=== PATIENT | female | born 1980 | race Caucasian/White ===

== ENCOUNTER 2018-09-23 17:51 | Emergency (ER) | payer OTHER ==
[2018-09-23] MEDS ORDERED: KETOROLAC TROMETHAMINE INJ/PF 30 MG/1 ML SDV IV ONE (19:42)
[2018-09-23] MEDS ORDERED: NORMAL SALINE 1000 ML 1,000 ML IV ONE (19:42)
[2018-09-23] MEDS ORDERED: ASPIRIN 81 MG TABLET, CHEWABLE PO ONE (19:42)
--- NOTE | 2018-09-23 19:46 | ER Document Report ---
ED Medical Screen (RME) - General Chief Complaint: Chest Pain Stated Complaint: CHEST PAIN, ARM PAIN, VOMITING Time Seen by Provider: 09/23/18 19:42 TRAVEL OUTSIDE OF THE [place] IN LAST 30 DAYS: No - HPI Notes: 09/23/18 19:45 Patient is a 38-year-old female that presents to the emergency department for chief complaint of chest pain. Patient reports left-sided chest pain for the last 2 weeks. Her pain has become more constant today. It started intermittent. She has associated shortness of breath and left arm aching. She denies history of hypertension. She denies recent surgery, travel, immobili zation, history of DVT/PE and exogenous estrogen use. ROS: GENERAL: Denies fever of chills CV: chest pain PHYSICAL EXAMINATION: GENERAL: Well-appearing, well-nourished and in no acute distress. HEAD: Atraumatic, normocephalic. EYES: Pupils equal round extraocular movements intact, conjunctiva are normal. ENT: Nares patent NECK: Normal range of motion LUNGS: No respiratory distress Musculoskeletal: Normal range of motion NEUROLOGICAL: Normal speech, normal gait. PSYCH: Normal mood, normal affect. MDM: Patient seen and examined for rapid initial assessment. Vital signs reviewed. A comprehensive ED assessment and evaluation of the patient, analysis of test results and completion of the medical decision making process will be conducted by additional ED providers. - Related Data Allergies/Adverse Reactions: No Known Allergies Allergy (Unverified 09/23/18 17:54) Physical Exam - Vital signs Vitals: Temp Pulse Resp BP Pulse Ox 98.4 F 100 16 146/101 H 98 09/23/18 17:55 09/23/18 17:55 09/23/18 17:55 09/23/18 17:55 09/23/18 17:55 Course - Vital Signs Vital signs: Temp Pulse Resp BP Pulse Ox 98.4 F 100 16 146/101 H 98 09/23/18 17:55 09/23/18 17:55 09/23/18 17:55 09/23/18 17:55 09/23/18 17:55
[2018-09-23 20:27] LABS: ABSOLUTE BASOPHILS # (AUTO) 0.1 10^3/uL (0.0-0.2); ABSOLUTE EOSINOPHILS # (AUTO) 0.1 10^3/uL (0.0-0.6); ABSOLUTE LYMPHOCYTES (AUTO) 3.6 10^3/uL (0.5-4.7); ABSOLUTE MONOCYTES (AUTO) 0.5 10^3/uL (0.1-1.4); ABSOLUTE NEUT (AUTO) 7.7 10^3/uL (1.7-8.2); BASOPHILS % (AUTO) 0.6 % (0-2); EOSINOPHILS % (AUTO) 1.1 % (0-6); HEMOGLOBIN 14.4 g/dL (12.0-15.5); LYMPHOCYTES % (AUTO) 29.8 % (13-45); MEAN CORPUSCULAR HEMOGLOBIN 28.9 pg (27.0-33.4); MEAN CORPUSCULAR HGB CONC 33.6 g/dL (32.0-36.0); MEAN CORPUSCULAR VOLUME 86 fl (80-97); MONOCYTES % (AUTO) 4.2 % (3-13); PLATELET COUNT 320 10^3/uL (150-450); RED CELL DISTRIBUTION WIDTH 13.5 % (11.5-14.0); SEGMENTED NEUTROPHILS % (AUTO) 64.3 % (42-78); TOTAL CELLS COUNTED % (AUTO) 100 %
--- NOTE | 2018-09-23 20:29 | RADIOLOGY REPORT (SQ) ---
EXAM DESCRIPTION: CHEST SINGLE VIEW COMPLETED DATE/TIME: 09/23/2018 8:22 pm REASON FOR STUDY: chest pain COMPARISON: None. EXAM PARAMETERS: NUMBER OF VIEWS: One view. TECHNIQUE: Single frontal radiographic view of the chest acquired. RADIATION DOSE: NA LIMITATIONS: None. FINDINGS: LUNGS AND PLEURA: No opacities, masses or pneumothorax. No pleural effusion. MEDIASTINUM AND HILAR STRUCTURES: No masses. Contour normal. HEART AND VASCULAR STRUCTURES: Heart normal in size. Normal vasculature. BONES: No acute findings. HARDWARE: None in the chest. OTHER: No other significant finding. IMPRESSION: NO ACUTE RADIOGRAPHIC FINDING IN THE CHEST. TECHNICAL DOCUMENTATION: JOB ID: [id number] [employer]- All Rights Reserved Reading location - IP/workstation name: [email or web address]
--- NOTE | 2018-09-23 20:35 | ER Document Report ---
ED General - General Chief Complaint: Chest Pain Stated Complaint: CHEST PAIN, ARM PAIN, VOMITING Time Seen by Provider: 09/23/18 19:42 Notes: Patient is a 38-year-old female that comes to the emergency department for chief complaint of pain at all on the left side of her chest radiating around the left side of her breast along with some pain in her left arm which is worse with movement. She states the pain in her chest is intermittent, she states that intermittently she feels like she is having palpitations, this lasted briefly and then resolves. She states pain was more noticeable today, she states she also got nauseated and threw up twice. No nausea since, no abdominal pain. When the palpitation sensation resolves the discomfort sensation resolves. She denies severe pain. She denies shortness of breath, dizziness, passing out. She denies personal or family history of [place], PE. She smokes 2 packs a day, she drinks "a lot" of caffeine, she takes no daily medications, she denies any diagnosed medical history. She has had C-sections and tonsillectomy. She denies alcohol or recreational drugs. Family at bedside. TRAVEL OUTSIDE OF THE [place] IN LAST 30 DAYS: No - Related Data Allergies/Adverse Reactions: No Known Allergies Allergy (Unverified 09/23/18 17:54) Past Medical History - General Information source: Patient - Social History Smoking Status: Current Every Day Smoker Chew tobacco use (# tins/day): No Smoking Education Provided: Yes - <3 min Frequency of alcohol use: None Drug Abuse: None Lives with: Family Family History: Reviewed & Not Pertinent Patient has suicidal ideation: No Patient has homicidal ideation: No - Medical History Medical History: Negative Renal/ Medical History: Denies: Hx Peritoneal Dialysis Past Surgical History: Reports: Hx Section - 3, Hx Tonsillectomy Review of Systems - Review of Systems Constitutional: No symptoms reported EENT: No symptoms reported Cardiovascular: See HPI Respiratory: No symptoms reported Gastrointestinal: No symptoms reported Genitourinary: No symptoms reported Female Genitourinary: No symptoms reported Musculoskeletal: See HPI Skin: No symptoms reported Hematologic/Lymphatic: No symptoms reported Neurological/Psychological: No symptoms reported Physical Exam - Vital signs Vitals: Temp Pulse Resp BP Pulse Ox 98.4 F 100 16 146/101 H 98 09/23/18 17:55 09/23/18 17:55 09/23/18 17:55 09/23/18 17:55 09/23/18 17:55 - Notes Notes: GENERAL: Alert, interacts well. No acute distress. HEAD: Normocephalic, atraumatic. EYES: Pupils equal, round, and reactive to light. Extraocular movements intact. ENT: Oral mucosa moist, tongue midline. Oropharynx unremarkable. Airway patent. Nares patent, no nasal septal hematoma, TM's intact. NECK: Full range of motion. Supple. Trachea midline. LUNGS: Clear to auscultation bilaterally, no wheezes, rales, or rhonchi. No respiratory distress. Tender along the left side of the chest, left mid axillary line, and worse with range of motion of the left arm. HEART: Borderline tachycardia, occasional extrasystoles, no murmur. ABDOMEN: Soft, non-tender. Non-distended. Bowel sounds present in all 4 quadrants. GENITOURINARY: Deferred EXTREMITIES: Moves all 4 extremities spontaneously. No edema, normal radial and dorsalis pedis pulses bilaterally. No cyanosis. BACK: no cervical, thoracic, lumbar midline tenderness. No saddle anesthesia, normal distal neurovascular exam. NEUROLOGICAL: Alert and oriented x3. Normal speech. [cranial nerves II through XII grossly intact]. PSYCH: Normal affect, normal mood. SKIN: Warm, dry, normal turgor. No rashes or lesions noted. Course - Re-evaluation Re-evalutation: Multiple PVCs noted on EKG and intermittently on monitoring. Blood pressure is unremarkable. Patient asymptomatic on my exam except for chest wall pain mainly over the left pectoralis, towards the shoulder and arm. This is mild and worsened by range of motion. Symptoms have been going on longer than 12 hours, troponin is negative. D-dimer is negative. TSH unremarkable. CBC, chemistry unremarkable. Reevaluated patient. Discussed her symptoms, treatment options, follow-up recommendations. Specifically for her PVCs and the palpitations she is feeling, after discussion decision was made to not place her on a beta-eryn, instead patient will attempt to quit smoking, reduce caffeine intake, and follow-up with primary care first with possible cardiology referral afterwards. Discussed return precautions in detail. Patient states understanding and agreement. - Vital Signs Vital signs: Temp Pulse Resp BP Pulse Ox 98.2 F 100 20 118/64 98 09/23/18 22:00 09/23/18 17:55 09/23/18 22:30 09/23/18 22:00 09/23/18 22:00 - Laboratory Result Diagrams: 09/23/18 20:05 09/23/18 20:05 Laboratory results interpreted by me: 09/23/18 20:05 WBC 12.0 H - EKG Interpretation by Me Additional EKG results interpreted by me: 09/23/18 20:35 EKG results interpreted by me, sinus tachycardia at a rate of 111, PVCs present, QTc of 457, DC interval 152, no T wave inversions or ST segment changes in consecutive leads. Normal axis. Discharge - Discharge Clinical Impression: Palpitations, Left arm pain, Chest wall pain Condition: Stable Disposition: HOME, SELF-CARE Additional Instructions: Your workup does not show any concerning abnormalities including EKG, thyroid, general laboratory studies. Your evaluation is consistent with frequent PVCs. These are extra heartbeats, I recommend that you stop smoking, reduce caffeine, and follow-up with the primary care provider for additional evaluation and management. You may need additional management, testing, or medications. The arm pain and chest wall pain are reassuring. This should resolve with time. You can take [id number] anti-inflammatories for these. I recommend also taking gastritis/reflux medication such as Pepcid with these to avoid additional GI upset or vomiting (because of upper abdominal inflammation from smoking and caffeine). Return if you worsen including passing out, if occult he breathing, chest pain, fever, vomiting, or any other concerning symptoms. Forms: Smoking Cessation Education Referrals: SAMIRA TOLBERT MD [ACTIVE STAFF] - Follow up as needed
[2018-09-23 20:48] LABS: ALANINE AMINOTRANSFERASE 32 U/L (9-52); ALBUMIN 4.9 g/dL (3.5-5.0); ALKALINE PHOSPHATASE 67 U/L (38-126); ANION GAP 7 (5-19); ASPARTATE AMINO TRANSFERASE 25 U/L (14-36); BILIRUBIN,DIRECT 0.1 mg/dL (0.0-0.4); BILIRUBIN,TOTAL 0.3 mg/dL (0.2-1.3); BLOOD UREA NITROGEN 9 mg/dL (7-20); CALCIUM 10.1 mg/dL (8.4-10.2); CARBON DIOXIDE 28 mmol/L (22-30); CHLORIDE 105 mmol/L (98-107); GLUCOSE 92 mg/dL (75-110); POTASSIUM 4.5 mmol/L (3.6-5.0); SODIUM 140.3 mmol/L (137-145); TOTAL PROTEIN 7.7 g/dL (6.3-8.2)
[2018-09-23 22:38] VITALS: BP 118/64
--- NOTE | 2018-09-24 09:08 | EKG REPORT ---
SEVERITY:- ABNORMAL ECG - SINUS TACHYCARDIA MULTIFORM VENTRICULAR PREMATURE COMPLEXES : Confirmed by: Lamont Mckeon MD 24-Sep-2018 09:07:35
== END 2018-09-23 22:30 | disposition home or self-care (01) ==
LOC: ER 17:51
DX: R07.89 Other chest pain (principal); I49.3 Ventricular premature depolarization; R00.2 Palpitations; R00.0 Tachycardia, unspecified; M79.602 Pain in left arm; R11.2 Nausea with vomiting, unspecified; F17.200 Nicotine dependence, unspecified, uncomplicated
CPT/HCPCS: 93005; 99284; 96361; 96374; 36415; 84443; 85025; 80053; 84484; 85379; 71045; 93010; J1885; J7030